=== PATIENT | female | born 1980 | race Hispanic/Latino ===

== ENCOUNTER → 2017-11-19 | Day surgery (SDC) | payer BC ==
[2017-11-13 08:25] LABS: BASOPHILS % 0.3 % (0.0-1.0); EOSINOPHILS # (AUTO) 0.1 (0.0-0.4); EOSINOPHILS % 0.7 % (0.0-6.0); HEMATOCRIT 35.3 % (34.2-44.1); HEMOGLOBIN 11.9 g/dL (12.0-16.0); LYMPHOCYTES % 28.1 % (18.0-39.1); MEAN CORPUSCULAR HGB CONC 33.7 g/dL (31-35); MEAN CORPUSCULAR VOLUME 91.9 fL (81-99); MONOCYTES # (AUTO) 0.6 (0.2-0.8); MONOCYTES % 8.5 % (4.4-11.3); NEUTROPHILS # (AUTO) 4.3 (2.1-6.9); NEUTROPHILS % 62.1 % (38.7-80.0); PLATELET COUNT 246 x10e3/uL (140-360); RED BLOOD COUNT 3.84 x10e6/uL (3.6-5.1); RED CELL DISTRIBUTION WIDTH 13.4 % (11.7-14.4)
[~2017-11-19] MED LIST: ACETAMINOPHEN 1000 MG/100 ML IV ONE; CEFAZOLIN SOD 2 GM/D5W 50ML 50 ML IV ONE; DEXAMETHASONE SOD PHOS INJ 4 MG/ML VIAL ONE; ESTROGENS CONJUGATED VAGINAL CR 45 GM TUBE PV ONE; GLYCOPYRROLATE INJ 1MG/ 5 ML SYR ONE; KETOROLAC TROMETHAMINE 30 MG/ML VIAL ONE; LIDOCAINE HCL 2% LOCAL INJ 5 ML SDV VIAL INJ ONE; MEPERIDINE HCL INJ 50 MG/ML INJ ONE; METOCLOPRAMIDE HCL 10 MG/2ML VIAL ONE; MIDAZOLAM HCL 2 MG/2 ML VIAL ONE; NEOSTIGMINE 5 MG/5ML SYR ONE; ONDANSETRON HCL INJ 2 MG/ML VIAL ONE; PROPOFOL IV EMULSION 10 MG/ML 20 ML VIAL ONE; ROCURONIUM BROMIDE 10 MG/ML 5ML VIAL ONE; SEVOFLURANE INHAL SOLN 250 ML PEN BTL ONE
--- NOTE | 2017-11-19 09:51 | Operative Report ---
DATE OF PROCEDURE: November 19, 2017 PREOPERATIVE DIAGNOSES 1. Pelvic pain. 2. Genuine stress incontinence. POSTOPERATIVE DIAGNOSES 1. Pelvic pain. 2. Genuine stress incontinence. PROCEDURES 1. Laparoscopy. 2. Division of adhesions. 3. Ablation of endometriosis. 4. Left ovarian cystectomy. 5. Transobturator tape. 6. Cystoscopy. COMPLICATIONS: None. ESTIMATED BLOOD LOSS: Minimal. ANESTHESIA: General anesthesia. PROCEDURE: The patient was prepped and draped in the sterile fashion. Was placed in the lithotomy position. catheter was placed into the bladder. Two Allis clamps were applied. The umbilicus was everted. The umbilicus was entered through an infraumbilical skin incision with the scalpel. A 5 mm bladeless trocar and cannula was passed through the abdominal wall and into the abdominal cavity. Trocar was removed. Scope was slid through the sleeve and into the abdominal cavity. Abdomen was inflated with carbon dioxide gas. The patient was placed in Trendelenburg position. Two other ports were made on the right side of the abdomen after making a 5 mm skin incision with the scalpel. A 5 mm bladeless trocar and cannula under direct visualization was passed through the abdominal wound to the abdominal cavity. Trocar was removed. Sleeve was advanced into the abdominal cavity. Using a grasper and LigaSure, division of adhesions was performed dividing as there was a lot of scar tissue between the pelvic colon and the anterior abdominal wall, which was divided and lysed. Also, the adnexa on each side were adherent to the pelvic sidewall, and division of adhesion was performed using the LigaSure. Following this, it was noted there were a few drops of endometriosis in the right side of abdomen, which were cauterized just inferior to the right ovary. Following this, left ovary was held with a grasper, and left hemorrhagic ovarian cyst was excised and sent to pathology after being removed through the endocatch from the umbilicus after increasing the incision to 10-mm incision. A 10-mm trocar was inserted inside the abdomen under direct visualization through a 5-mm scope on the periphery. Following this, endometriosis was cauterized on the right side using the electric Bovie and suction irrigation. Peritoneal cavity with warm saline revealed good hemostasis. Instruments were removed from the abdomen. Abdomen was deflated. Coto catheter was placed inside for drainage. UV junction was marked with Allis clamp, and another was placed in the urethral meatus. Subvaginal tissue was injected with Marcaine with epinephrine 0.25% subvaginally. The midurethra vaginal skin incision was performed with a scalpel at the level of the midurethra, and subvaginal tissue was dissected off the urethra using Metzenbaum scissors using the push-pull technique towards the inferior pubic ramus. The same was repeated on the other side. Scalpel was used to make stab wounds at the entry points, which were at the level of the clitoris and the intra-crural line on both sides of the pelvis. Using the Obtrex trocar, the trocar was inserted inside the entry points. With the index finger just below inferior to the , the tip was palpated and directed to the outside. The Obtrex tape was threaded on the trocar and the trocar was withdrawn. The same was repeated on the other side. The sling was laid down flat the level of the midurethra. Cystoscopy was performed and showed normal bladder and urethra. The cover was removed, and excess sling was trimmed off at the skin. Vagina was closed with interlocking stitch of 0 Vicryl. The skin was approximated at the entry points using Dermabond. The vagina was closed with an interlocking stitch of 0 Vicryl. Hemostasis was found to be adequate. The patient tolerated the procedure well. Laps and instrument counts were correct times 2 at the end of the procedure. Job#: [id number] KEITH
== END | disposition home or self-care (01) ==
LOC: OR 05:50
PROVIDERS: ATTEND Obstetrics & Gynecology
DX: N39.3 Stress incontinence (female) (male) (principal); N80.8 Other endometriosis; Z85.41 Personal history of malignant neoplasm of cervix uteri; N39.0 Urinary tract infection, site not specified; K21.9 Gastro-esophageal reflux disease without esophagitis; F41.9 Anxiety disorder, unspecified; Z01.812 Encounter for preprocedural laboratory examination; Z87.891 Personal history of nicotine dependence; N83.12 Corpus luteum cyst of left ovary
CPT/HCPCS: 36415; 57288; 58662; 85025; 88305; J1100; J1885; J2001; J2175; J2250; J2405; J2765; 88304